=== PATIENT | female | born 1970 | race Caucasian/White ===

== ENCOUNTER → 2017-09-05 | Outpatient (CLI) | payer BC ==
[~2017-09-05] MED LIST: ALBU90OI61 INH; ALPR.5 PO; ALPR1 PO; AMOX500 PO; ASPI81EC PO; CYAN1000I IM; GABA100 PO; HYDACE5 PO; HYDR.5TC; IBUP600 PO; LORA2 PO; METO25ER PO; Norco 5-325 Ta1 EACH PO; PROM25 PO; Prilosec Otc20 MG; Zofran4 MG PO
== END ==
LOC: PLD 10:30 → LAB SHORT 10:30
DX: D22.5 Melanocytic nevi of trunk (principal)
CPT/HCPCS: 88305

== ENCOUNTER → 2019-10-07 | Outpatient (CLI) | payer BC, OTHER | END | disposition home or self-care (01) | LOC: LAB EV 12:31 → LAB SHORT 12:31 | DX: J06.9 Acute upper respiratory infection, unspecified (principal); Z20.828 Contact with and (suspected) exposure to other viral communicable diseases | CPT/HCPCS: U0003 ==

== ENCOUNTER → 2021-01-01 | Outpatient (CLI) | payer BC | LOC: LAB 17:40 → LAB SHORT 17:40 | DX: Z79.899 Other long term (current) drug therapy (principal); Z88.2 Allergy status to sulfonamides; Z88.5 Allergy status to narcotic agent; Z88.6 Allergy status to analgesic agent | CPT/HCPCS: G0480 ==

== ENCOUNTER 2024-05-22 10:34 | Day surgery (SDC) | payer BC ==
[~2024-05-22] VITALS: Ht 172.7 cm; Wt 90.1 kg
[~2024-05-22 10:34] MED LIST changes: +ASPERFLEX1 EACH TOP; +Balanced Salt Epinephrine Irrigation Solution 500 mL IR SCH; +Lidocaine HCl/Pf 1% 5 ML VIAL XX SCH; +Moxifloxacin HCL 0.5 MG/0.1 ML 0.4MLSYR LEFTEYE SCH; +PHENYLEPHRINE\\TROPICAMIDE\\TETRACAINE OPHTHALMIC DILATING SOLN LEFTEYE PRN; +Povidone-Iodine 450 DROP/30 ML Solution LEFTEYE SCH; +Povidone-Iodine 450 DROP/30 ML Solution ONE; +Tetracaine HCl/Pf 0.5% Opth Soln 4 ml ONE; +Triamcinolone Inj Susp 40 MG / ML 1ML Vial INJ SCH; +Triamcinolone Inj Susp 40 MG / ML 1ML Vial ONE
[2024-05-22] MEDS ORDERED: VITAMIN B12 (11:26)
[2024-05-22] MEDS ORDERED: GABAPENTIN600 MG PO (11:27)
[2024-05-22] MEDS ORDERED: FT SENNA-S 8.61 EACH (11:28)
[2024-05-22] MEDS ORDERED: MELO7.5 PO (11:29)
[2024-05-22] MEDS ORDERED: [UNRECOGNIZED DRUG - REMARK] (11:29)
[2024-05-22] MEDS ORDERED: Midazolam HCl 1MG / ML 2ML Vial ONE ×2 (12:09→12:11)
[2024-05-22] MEDS ORDERED: FentaNYL Citrate 50 MCG/ML 2 ML Injection ONE (12:14)
[2024-05-22 12:35] VITALS: BP 122/79
== END 2024-05-22 12:53 | disposition home or self-care (01) ==
LOC: ORSCSDS 10:34
PROVIDERS: Ophthalmology
PROC: 08RK3JZ Replacement of Left Lens with Synthetic Substitute, Percutaneous Approach (ICD-10-PCS; principal; 2024-05-22 12:00)
DX: H25.813 Combined forms of age-related cataract, bilateral (principal); F41.9 Anxiety disorder, unspecified; Z79.899 Other long term (current) drug therapy
CPT/HCPCS: J2250; J3010; J3301; V2632

== ENCOUNTER 2024-05-29 07:31 | Day surgery (SDC) | payer BC ==
[~2024-05-29] VITALS: Ht 172.7 cm; Wt 89.8 kg
[~2024-05-29 07:31] MED LIST changes: +FT SENNA-S 8.61 EACH; +GABAPENTIN600 MG PO; +MELO7.5 PO; +Midazolam HCl 1MG / ML 2ML Vial ONE; -Moxifloxacin HCL 0.5 MG/0.1 ML 0.4MLSYR LEFTEYE SCH; +Moxifloxacin HCL 0.5 MG/0.1 ML 0.4MLSYR RIGHTEYE SCH; +NS 500 ML ONE; -PHENYLEPHRINE\\TROPICAMIDE\\TETRACAINE OPHTHALMIC DILATING SOLN LEFTEYE PRN; +PHENYLEPHRINE\\TROPICAMIDE\\TETRACAINE OPHTHALMIC DILATING SOLN RIGHTEYE PRN; -Povidone-Iodine 450 DROP/30 ML Solution LEFTEYE SCH; +Povidone-Iodine 450 DROP/30 ML Solution RIGHTEYE SCH; +VITAMIN B12; +[UNRECOGNIZED DRUG - REMARK]
[2024-05-29] MEDS ORDERED: NS 500 ML IV ONE (08:08)
--- NOTE | 2024-05-29 08:11 | NUR ---
05/29/24 0811 Melba Briceño TETRAELLA: [id number] ALMA ROSA: [id number]
[2024-05-29] MEDS ORDERED: FentaNYL Citrate 50 MCG/ML 2 ML Injection ONE (08:17)
[2024-05-29 09:07] VITALS: BP 126/81
--- NOTE | 2024-05-29 09:24 | NUR ---
05/29/24 0924 CLARISSA DAVILA ALL QUESTIONS ANSWERED, NEHA PRESENT FOR DC INSTRUCTIONS. EYE KIT IN HAND AND EYE SHIELD IN PLACE.
== END 2024-05-29 09:22 | disposition home or self-care (01) ==
LOC: ORSCSDS 07:31
PROVIDERS: Ophthalmology
PROC: 08RJ3JZ Replacement of Right Lens with Synthetic Substitute, Percutaneous Approach (ICD-10-PCS; principal; 2024-05-29 09:00)
DX: H25.811 Combined forms of age-related cataract, right eye (principal); Z96.1 Presence of intraocular lens; F41.9 Anxiety disorder, unspecified; H33.322 Round hole, left eye; H04.123 Dry eye syndrome of bilateral lacrimal glands; Z79.899 Other long term (current) drug therapy
CPT/HCPCS: J2250; J3010; J3301; V2632